=== PATIENT | male | born 1965 | race Caucasian/White ===

== ENCOUNTER → 2016-11-01 | Outpatient (CLI) | payer BC ==
[~2016-11-01] MED LIST: CIPRO PO; FLOMAX0.4 MG PO; LISINOPRIL PO; LORTAB 7.5-5001 TAB PO; MELOXICAM15 MG PO; NEURONTIN300 MG PO; PERCOCET5/325 PO; PLAQUENIL200 MG PO; PRINIVIL5 MG PO
--- NOTE | ~2016-11-01 | EKG ---
PATIENT: DANTE COON UNIT #: [id number] Ventricular Rate: 67 BPM Atrial Rate: 67 BPM P-R Interval: 150 ms QRS Duration: 90 ms Q-T Interval: 390 ms QTC Calculation(Bezet): 412 ms P [place]: 29 degrees Calculated R [place]: -5 degrees Calculated T [place]: -2 degrees Diagnosis Line: Normal sinus rhythm Diagnosis Line: Normal ECG Diagnosis Line: When compared with ECG of 05-AUG-2014 09:11, Diagnosis Line: No significant change was found Diagnosis Line: Confirmed by LUCAS GRANDA MD ([id number]) on Diagnosis Line: 11/02/2016 10:52:08 AM INTERPRETING MD: JESUS ALBERTO ROCHA
== END | disposition home or self-care (01) ==
LOC: CAMB 08:00 → EDSTATUS 08:00 → CAMB 09:21
DX: Z01.810 Encounter for preprocedural cardiovascular examination (principal); K43.9 Ventral hernia without obstruction or gangrene
CPT/HCPCS: 93005

== ENCOUNTER → 2016-11-05 | Day surgery (SDC) | payer BC ==
--- NOTE | ~2016-11-05 | OR ---
Unit #: [id number] #: [id number] Patient: DANTE COON [id number] [address] [address] [id number] MR#: [id number] NAME: DANTE COON ROOM: Date of Procedure: 11/05/2016 Admission Date: 11/05/2016 Surgeon: Seth Cruz M.D. : 1965 Attending Physician: Seth Cruz M.D. Primary Care Physician: Felix Roberts Jr., M.D. OPERATIVE REPORT PREOPERATIVE DIAGNOSIS Incarcerated incisional hernia. POSTOPERATIVE DIAGNOSIS 2 cm incarcerated incisional hernia. PROCEDURE PERFORMED Laparoscopic ventral hernia repair of incarcerated incisional hernia with 15.2 cm diameter Ventralex mesh. ASA class #2. Total operative time is 14 minutes. [employer] None. ANESTHESIA General anesthesia. ESTIMATED BLOOD LOSS Minimal. IV FLUIDS 800 crystalloid. COMPLICATIONS None. INDICATIONS FOR PROCEDURE The patient is a 51-year-old gentleman, who presents with the incisional hernia. He presents for laparoscopic repair. DESCRIPTION OF PROCEDURE The patient was taken to the operating theater and placed in supine position. General anesthesia was induced. The abdomen prepped and draped. A 5-mm Optiview trocar was placed in the left upper quadrant without difficulty. The abdomen was insufflated to 15 mmHg with CO2. Under direct vision, I placed left lower quadrant 10 mm. General inspection of the abdomen revealed incarcerated hernia measuring approximately 2 cm in diameter. This was reduced with gentle traction of the omentum. I then placed a 15.2 cm diameter Ventralex mesh intraabdominally. This was held in place with single-stranded Vicryl sutures and delivered transcutaneous. I then secured this with the Unit #: [id number] #: [id number] Patient: DANTE COON tacking device with 2 circumferential rows of tacks. This covered the defect by at least 5 cm in all circumference. Hemostasis was adequate. I removed the ports under direct vision with no evidence of abdominal hemorrhage. The sutures were cut at skin level. The wound was closed with 4-0 Vicryl. The patient tolerated the procedure well and sent to recovery room in good condition. Dictated by... Florentin YangO/blanche SANTOS: 11/05/2016 10:08 TD: 11/05/2016 12:20 JOB #: [id number] OPERATIVE REPORT Page 1 of 1 X Seth Cruz MD PROCEDURE OPERATIVE NOTE
== END | disposition home or self-care (01) ==
LOC: CSUR 05:35
DX: K43.0 Incisional hernia with obstruction, without gangrene (principal); I10 Essential (primary) hypertension; M06.9 Rheumatoid arthritis, unspecified; M19.90 Unspecified osteoarthritis, unspecified site; Z87.442 Personal history of urinary calculi; Z88.0 Allergy status to penicillin; Z88.8 Allergy status to other drugs, medicaments and biological substances; Z79.899 Other long term (current) drug therapy
CPT/HCPCS: C1781; J0330; J0461; J1644; J1885; J2250; J2405; J2710; J3010; J3370